=== PATIENT | male | born 1965 | race Caucasian/White ===

== ENCOUNTER 2017-04-01 11:27 | Emergency (ER) | payer OTHER ==
[~2017-04-01] VITALS: Ht 182.9 cm; Wt 111.8 kg
[~2017-04-01 11:27] MED LIST: ALPR-475 PO; BACI28.42 TP; ESOM40CA PO; GEMF600T3 PO; HYDR-3138 PO; HYDR2TAB40 PO; LORA0.5T PO; METH5TAB2 PO; METO5TAB57 PO; ONDA4TAB7 PO; ONDA8TAB16 SL; OXYC-302 PO; OXYC1TAB6 PO; OXYC5CAP4 PO; POLY17PO5 PO; PROC10TA PO; PROM25SU34 RC; TEMA15CA6 PO
[2017-04-01] MEDS ORDERED: KETOROLAC 30 MG/1 ML IM ONE (13:00)
[2017-04-01] MEDS ORDERED: HYDROcodone/APAP 10/325 MG TABLET PO PRN (13:00)
[2017-04-01 13:19] LABS: ASPARTATE AMINO TRANSFERASE 17 U/L (15-37); BLOOD UREA NITROGEN 21 mg/dL (7-18)
[2017-04-01 13:28] LABS: IS PT STATUS REG ER OR PRE ER? YES
[2017-04-01] MEDS ORDERED: KETOROLAC 30 MG/1 ML ONE (13:30)
[2017-04-01] MEDS ORDERED: HYDROcodone/APAP 10/325 MG TABLET ONE (13:30)
[2017-04-01 13:40] VITALS: BP 132/64
== END 2017-04-01 13:58 | disposition home or self-care (01) ==
LOC: ED 12:39
DX: R07.9 Chest pain, unspecified (principal)
CPT/HCPCS: 36415; 71010; 80053; 84484; 85025; 93005; 96372; 99285; J1885